=== PATIENT | female | born 1985 | race Caucasian/White ===

== ENCOUNTER 2017-06-14 18:40 | Emergency (ER) | payer MEDICAID ==
[~2017-06-14] VITALS: Ht 167.6 cm; Wt 85.5 kg
[~2017-06-14 18:40] MED LIST: NITR-58 PO; PANT40TA3 PO; TRAM-40 PO
[2017-06-14 18:51] VITALS: Ht 167.6 cm; Wt 85.5 kg
[2017-06-14] MEDS ORDERED: KETOROLAC 30 MG INJ IM STA (20:26)
[2017-06-14] MEDS ORDERED: NAPR-260 PO (20:27)
[2017-06-14] MEDS ORDERED: CYCL-319 PO (20:27)
--- NOTE | 2017-06-14 21:31 | ERD ---
ER Documentation Chief Complaint Date/Time DATE: 06/14/17 TIME: 21:29 Chief Complaint back pain x 2 days, denies injury HPI This patient is a 31-year-old female with no significant past medical history presenting to the emergency department with complaints of bilateral paraspinal lumbar pain ongoing for the past 2 days after twisting and trying to lift a heavy piece of furniture. The pain is constant, 9 out of 10 in severity, exacerbated by movement, and alleviated with ibuprofen. The patient denies any loss of bowel or bladder function, fevers, chills, or other symptoms currently. ROS All systems reviewed and are negative except as per history of present illness. Medications Home Meds Active Scripts Naproxen* (Naprosyn*) 500 Mg Tablet, 500 MG PO BID Y for PAIN AND/OR INFLAMMATION, #30 TAB Prov:LIMA RODRIGUEZ PA-C 06/14/17 Cyclobenzaprine Hcl* (Cyclobenzaprine Hcl*) 10 Mg Tablet, 10 MG PO TID, #15 TAB Prov:LIMA RODRIGUEZ PA-C 06/14/17 Tramadol Hcl* (Ultram*) 50 Mg Tablet, 50 MG PO Q6H Y for PAIN for 7 Days, TAB Prov:GIOVANNA SANTOS MD 12/17/15 Nitrofurantoin Monohyd Macrocr* (Macrobid*) 100 Mg Capsr, 100 MG PO BID for 7 Days, CAP Prov:GIOVANNA SANTOS MD 12/17/15 Pantoprazole* (Protonix*) 40 Mg Tablet.dr, 40 MG PO BID for 30 Days, TAB Prov:GIOVANNA SANTOS MD 12/17/15 Allergies Allergies: Coded Allergies: No Known Allergy (Unverified , 12/09/15) PMhx/Soc Medical and Surgical Hx: pt denies Surgical Hx History of Surgery: Yes (cholecystectomy) Anesthesia Reaction: No Hx Neurological Disorder: No Hx Respiratory Disorders: No Hx Cardiac Disorders: No Hx Psychiatric Problems: No Hx Miscellaneous Medical Probl: Yes (gastritis) Hx Alcohol Use: Yes Hx Substance Use: No Hx Tobacco Use: Yes Smoking Status: Current every day smoker Physical Exam Vitals Vital Signs Date Time Temp Pulse Resp B/P Pulse Ox O2 Delivery O2 Flow Rate FiO2 06/14/17 18:51 98.7 78 20 120/81 98 Physical Exam Const: Nontoxic, well-appearing female in no acute distress. Head: Atraumatic Eyes: Normal Conjunctiva ENT: Normal External Ears, Nose and Mouth. Neck: Full range of motion..~ No meningismus. Resp: Clear to auscultation bilaterally Cardio: Regular rate and rhythm, no murmurs Skin: No petechiae or rashes Back: No midline or flank tenderness. There is mild paraspinal tenderness palpation of the lumbar spine. Positive straight leg raise bilaterally. Ext: No cyanosis, or edema Neur: Awake and alert Psych: Normal Mood and Affect Results 24 hrs Current Medications Medications (Trade) Dose Ordered Sig/Ron Route PRN Reason Start Time Stop Time Status Last Admin Dose Admin Ketorolac Tromethamine (Toradol) 30 mg ONCE STAT IM 06/14/17 20:26 06/14/17 20:27 DC 06/14/17 20:35 Procedures/MDM 31-year-old female presenting to the emergency department with complaints of low back pain. History and physical examination is consistent with a lumbar strain. The patient was given IM Toradol in the department and she was feeling improved prior to discharge. The patient is stable for outpatient management with a prescription for naproxen and Flexeril. All questions and concerns were addressed. The patient agreed with the discharge plan of diagnosis. Strict ER return precautions were discussed. I have low suspicion for cauda equina, epidural abscess, vertebral body fracture, or other emergent conditions. Close follow-up with the primary care physician was advised. Departure Diagnosis: Primary Impression: Back pain Back pain location: low back pain Chronicity: acute Back pain laterality: bilateral Sciatica presence: unspecified whether sciatica present Qualified Code: M54.5 - Acute bilateral low back pain, with sciatica presence unspecified Condition: Fair Patient Instructions: Back Pain (Acute Or Chronic) Referrals: COMMUNITY CLINICS YOU HAVE RECEIVED A MEDICAL SCREENING EXAM AND THE RESULTS INDICATE THAT YOU DO NOT HAVE A CONDITION THAT REQUIRES URGENT TREATMENT IN THE EMERGENCY DEPARTMENT. FURTHER EVALUATION AND TREATMENT OF YOUR CONDITION CAN WAIT UNTIL YOU ARE SEEN IN YOUR DOCTORS OFFICE WITHIN THE NEXT 1-2 DAYS. IT IS YOUR RESPONSIBILITY TO MAKE AN APPOINTMENT FOR FOLOW-UP CARE. IF YOU HAVE A PRIMARY DOCTOR --you should call your primary doctor and schedule an appointment IF YOU DO NOT HAVE A PRIMARY DOCTOR YOU CAN CALL OUR PHYSICIAN REFERRAL HOTLINE AT IF YOU CAN NOT AFFORD TO SEE A PHYSICIAN YOU CAN CHOSE FROM THE FOLLOWING [facility] CLINICS [facility] [address] [facility] [address] [facility] [address] [facility] [address] [facility] [phone] [facility]. [facility]. [address] Additional Instructions: No mas mejor en 2-3 vicente, regresar. Mas peor en 24 horas, regresear rapidamente. Ir a doctor primario in 5-7 vicente. Usar instrucciones cuando kareen medicamento. LIMA RODRIGUEZ PA-C Jun 14, 2017 21:31
== END 2017-06-14 21:10 | disposition home or self-care (01) ==
LOC: FTE 18:40
DX: M54.5 Low back pain (principal); F17.210 Nicotine dependence, cigarettes, uncomplicated
CPT/HCPCS: 96372; J1885; Z7502

== ENCOUNTER 2017-11-07 04:41 | Emergency (ER) | END 2017-11-07 06:57 | disposition home or self-care (01) ==

== ENCOUNTER 2018-06-18 15:55 | Emergency (ER) | END 2018-06-18 18:52 | disposition home or self-care (01) ==

== ENCOUNTER 2018-07-02 16:24 | Emergency (ER) | END 2018-07-02 20:02 | disposition home or self-care (01) ==

== ENCOUNTER 2018-09-11 05:56 | Emergency (ER) | END 2018-09-11 07:22 | disposition home or self-care (01) ==

== ENCOUNTER 2019-03-22 08:15 | Emergency (ER) | payer MEDICAID ==
[~2019-03-22] VITALS: Ht 160 cm; Wt 76.4 kg
[~2019-03-22 08:15] MED LIST changes: +ACET1TAB40 PO; +ALBU18HF INHALATION; +CEPH500C PO; +CIPR500T4 PO; +CYCL10TA7 PO; +FLUT9.9S NASAL; +GUAI5SYR2 PO; +HYDR-4011 PO; +IBUP-1542 PO; +NAPR-688 PO; +NAPR-985 PO; +ONDA4TAB14 PO; +OSEL75CA23 PO; +PHEN-538 PO; -TRAM-40 PO; +TRAM50TA PO
[2019-03-22 08:20] VITALS: Ht 160 cm; Wt 76.4 kg
[2019-03-22] MEDS ORDERED: SOD CHLORIDE 0.9% 1,000 ML IV STA (08:36)
[2019-03-22] MEDS ORDERED: morphine 4 MG/ML VIAL IV STA (09:37)
[2019-03-22] MEDS ORDERED: ONDANSETRON 4 MG INJ IV STA (09:37)
[2019-03-22] MEDS ORDERED: KETOROLAC 30 MG INJ IV STA (09:45)
[2019-03-22] MEDS ORDERED: IOHEXOL 300MG/ML 150 ML BTL ONE (10:54)
[2019-03-22] MEDS ORDERED: SOD CHLORIDE 0.9% 100 ML ONE (10:54)
[2019-03-22] MEDS ORDERED: CEFTRIAXONE 1 GM/50 ML (PMX) 50 ML IVPB ONE (12:00)
[2019-03-22] MEDS ORDERED: CIPR500T4 PO (12:51)
[2019-03-22] MEDS ORDERED: FER325 PO (12:51)
[2019-03-22] MEDS ORDERED: DOCU-144 PO (12:51)
[2019-03-22 13:15] VITALS: BP 124/68; PULSE 66; RESP 18
--- NOTE | 2019-03-22 15:15 | ERD ---
ER Documentation Chief Complaint Chief Complaint Right flank and left LQ abd. pain for 2 weeks; no N/V/D; no urinary problem HPI 33-year-old female presenting with right flank pain for last 2 weeks. Patient states that the pain is in the lower pelvic area. No dysuria. Patient is also complaining of itchy sensation to her hands. Denies chest pain or shortness of breath. Denies medical problems. NKDA. Surgical history cholecystectomy. Social history denies ROS All systems reviewed and are negative except as per history of present illness. Medications Home Meds Active Scripts Ferrous Sulfate* (Ferrous Sulfate*) 325 Mg Tabec, 325 MG PO BID, #30 TAB Prov:KATY ERIC PA-C 03/22/19 Docusate Sodium* (Colace*) 100 Mg Capsule, 100 MG PO TID, #30 CAP Prov:KATY ERIC PA-C 03/22/19 Ciprofloxacin Hcl* (Ciprofloxacin Hcl*) 500 Mg Tablet, 500 MG PO BID for 7 Days, TAB Prov:KATY ERIC PA-C 03/22/19 Phenazopyridine Hcl* (Pyridium*) 200 Mg Tab, 200 MG PO TID PRN for URINARY PAIN, #6 TAB Prov:ENOC WHITE PA-C 09/11/18 Cephalexin* (Cephalexin*) 500 Mg Capsule, 500 MG PO BID, #20 CAP Prov:ENOC WHITE PA-C 09/11/18 Acetaminophen with Codeine (Acetaminophen-Cod #3 Tablet) 1 Each Tablet, 1 TAB PO Q6H PRN for PAIN, #7 TAB Prov:LEONCIO GARCIA MD 07/02/18 Ibuprofen* (Motrin*) 600 Mg Tab, 600 MG PO Q6, #20 TAB Prov:LEONCIO GARCIA MD 07/02/18 Ciprofloxacin Hcl* (Ciprofloxacin Hcl*) 500 Mg Tablet, 500 MG PO BID for 10 Days, TAB Prov:LEONCIO GARCIA MD 07/02/18 Ondansetron (Ondansetron Odt) 4 Mg Tab.rapdis, 4 MG PO Q6H PRN for NAUSEA AND/OR VOMITING, #10 TAB Prov:RUT BANEGAS DO 8/12/18 Hydrocodone/Acetaminophen ([place] 5-325 Tablet) 1 Each Tablet, 1 EACH PO Q6 PRN for SEVERE PAIN LEVEL 7-10, #14 TAB Prov:RUT BANEGAS DO 06/18/18 Ciprofloxacin Hcl* (Ciprofloxacin Hcl*) 500 Mg Tablet, 500 MG PO BID, #14 TAB Prov:RUT BANEGAS DO 06/18/18 Naproxen* (Naproxen*) 500 Mg Tablet, 500 MG PO BID PRN for PAIN, #20 TAB Prov:RUT BANEGAS DO 06/18/18 Oseltamivir Phosphate* (Tamiflu*) 75 Mg Capsule, 75 MG PO BID for 5 Days, CAP Prov:NUBIA CONNC 11/07/17 Albuterol Sulfate* (Ventolin HFA*) 18 Gm Hfa.aer.ad, 2 PUFF INHALATION Q6H, #1 INHALER Prov:NUBIA CONN PA-C 11/07/17 Fluticasone Propionate (Flonase Allergy Relief) 9.9 Ml [place].susp, 2 SPRAY NASAL DAILY, #1 BOTTLE TO EACH NOSTRIL Prov:NUBIA CONNC 11/07/17 Guaifenesin-Dextromethorphan* (Robitussin* DM) 100MG/10MG/5ML Syrup, 10 ML PO Q6H PRN for COUGH for 5 Days, ML Prov:NUBIA CONNC 11/07/17 Naproxen* (Naprosyn*) 500 Mg Tablet, 500 MG PO BID PRN for PAIN AND/OR INFLAMMATION, #30 TAB Prov:NUBIA CONN PA-C 11/07/17 Naproxen* (Naprosyn*) 500 Mg Tablet, 500 MG PO BID PRN for PAIN AND/OR INFLAMMATION, #30 TAB Prov:LIMA RODRIGUEZ PA-C 06/14/17 Cyclobenzaprine Hcl* (Cyclobenzaprine Hcl*) 10 Mg Tablet, 10 MG PO TID, #15 TAB Prov:LIMA RODRIGUEZ PA-C 06/14/17 Tramadol Hcl* (Ultram*) 50 Mg Tablet, 50 MG PO Q6H PRN for PAIN for 7 Days, TAB Prov:GIOVANNA SANTOS MD 12/17/15 Nitrofurantoin Monohyd Macrocr* (Macrobid*) 100 Mg Capsr, 100 MG PO BID for 7 Days, CAP Prov:GIOVANNA SANTOS MD 12/17/15 Pantoprazole* (Protonix*) 40 Mg Tablet.dr, 40 MG PO BID for 30 Days, TAB Prov:GIOVANNA SANTOS MD 12/17/15 Allergies Allergies: Coded Allergies: No Known Allergy (Unverified , 11/07/17) PMhx/Soc Medical and Surgical Hx: pt denies Medical Hx History of Surgery: Yes (GALLBLADDER) Anesthesia Reaction: No Hx Neurological Disorder: No Hx Respiratory Disorders: No Hx Cardiac Disorders: No Hx Psychiatric Problems: No Hx Miscellaneous Medical Probl: No Hx Alcohol Use: Yes (OCCASIONAL-beer weekends) Hx Substance Use: No Hx Tobacco Use: No Smoking Status: Never smoker FmHx Family History: No diabetes, No coronary disease, No other Physical Exam Vitals Vital Signs Date Temp Pulse Resp B/P (MAP) Pulse Ox O2 O2 Flow FiO2 Time Delivery Rate 03/22/19 97.9 66 18 124/68 100 Room Air 13:15 (86) 03/22/19 98.3 72 18 138/82 100 08:20 (100) Physical Exam GENERAL: The patient is well-appearing, well-nourished, in no acute distress HEENT: Atraumatic. Conjunctivae are pink. Pupils equal, round, and reactive to light. There is no scleral icterus. Tympanic membranes clear bilaterally. Oropharynx clear. CHEST: Clear to auscultation bilaterally. There are no rales, wheezes or rhonchi. HEART: Regular rate and rhythm. No murmurs, clicks, rubs or gallops. ABDOMEN: Active bowel sounds. No distention. Generalized abdominal pain with palpation. SKIN: Pale skin noted on exam. No diaphoresis Result Diagram: 03/22/19 0842 03/22/19 0842 Results 24 hrs Laboratory Tests Test 03/22/19 08:42 03/22/19 08:45 White Blood Count 10.2 10^3/ul Red Blood Count 4.38 10^6/ul Hemoglobin 9.3 g/dl Hematocrit 31.4 % Mean Corpuscular Volume 71.7 fl Mean Corpuscular Hemoglobin 21.2 pg Mean Corpuscular Hemoglobin Concent 29.6 g/dl Red Cell Distribution Width 17.3 % Platelet Count 387 10^3/UL Mean Platelet Volume 9.3 fl Immature Granulocytes % 0.300 % Neutrophils % 59.2 % Lymphocytes % 32.7 % Monocytes % 6.2 % Eosinophils % 1.3 % Basophils % 0.3 % Nucleated Red Blood Cells % 0.0 /100WBC Immature Granulocytes # 0.030 10^3/ul Neutrophils # 6.0 10^3/ul Lymphocytes # 3.3 10^3/ul Monocytes # 0.6 10^3/ul Eosinophils # 0.1 10^3/ul Basophils # 0.0 10^3/ul Nucleated Red Blood Cells # 0.0 10^3/ul Urine Color YELLOW Urine Clarity SLIGHTLY CLOUDY Urine pH 6.0 Urine Specific [place] 1.015 Urine Ketones NEGATIVE mg/dL Urine Nitrite NEGATIVE mg/dL Urine Bilirubin NEGATIVE mg/dL Urine Urobilinogen NEGATIVE mg/dL Urine Leukocyte Esterase 3+ Jon/ul Urine Microscopic RBC 7 /HPF Urine Microscopic WBC 42 /HPF Urine Squamous Epithelial Cells FEW /HPF Urine Bacteria FEW /HPF Urine Mucus MODERATE /HPF Urine Hemoglobin 3+ mg/dL Urine Glucose NEGATIVE mg/dL Urine Total Protein NEGATIVE mg/dl Sodium Level 141 mmol/L Potassium Level 3.8 mmol/L Chloride Level 103 mmol/L Carbon Dioxide Level 28 mmol/L Anion Gap 10 Blood Urea Nitrogen 8 mg/dl Creatinine 0.52 mg/dl Est Glomerular Filtrat Rate mL/min > 60 mL/min Glucose Level 104 mg/dl Calcium Level 9.4 mg/dl Total Bilirubin 0.4 mg/dl Direct Bilirubin 0.00 mg/dl Indirect Bilirubin 0.4 mg/dl Aspartate Amino Transf (AST/SGOT) 51 IU/L Alanine Aminotransferase (ALT/SGPT) 59 IU/L Alkaline Phosphatase 112 IU/L Total Protein 8.5 g/dl Albumin 4.6 g/dl Globulin 3.90 g/dl Albumin/Globulin Ratio 1.17 Lipase 50 U/L Hepatitis B Surface Antigen NEGATIVE Hepatitis B Core Total Antibody NEGATIVE Hepatitis C Antibody NEGATIVE POC Beta HCG, Qualitative NEGATIVE Current Medications Medications Dose Sig/Ron Start Time Status Last (Trade) Ordered Route PRN Stop Time Admin Dose Reason Admin Sodium 1,000 ml @ Q1H STAT 03/22/19 DC 03/22/19 Chloride 1,000 mls/hr IV 08:36 08:56 03/22/19 09:35 Morphine 4 mg ONCE STAT 03/22/19 DC Sulfate IV 09:37 (morphine) 03/22/19 09:38 Ondansetron 4 mg ONCE STAT 03/22/19 DC 03/22/19 HCl (Zofran IV 09:37 09:49 Inj) 03/22/19 09:38 Ketorolac 30 mg ONCE STAT 03/22/19 DC 03/22/19 Tromethamine IV 09:45 09:50 (Toradol) 03/22/19 09:46 IV Flush 10 ml STK-MED 03/22/19 DC 03/22/19 (NS 10 ml) ONCE .ROUTE 10:54 11:03 03/22/19 10:55 Sodium 100 ml @ ud STK-MED 03/22/19 DC 03/22/19 Chloride ONCE .ROUTE 10:54 11:03 03/22/19 10:55 Iohexol 150 ml STK-MED 03/22/19 DC 03/22/19 (Omnipaque ONCE .ROUTE 10:54 11:03 300mg/ ml) 03/22/19 10:55 Ceftriaxone 50 ml @ ONCE ONCE 03/22/19 DC 03/22/19 Sodium 100 mls/hr IVPB 12:00 12:03 03/22/19 12:29 Procedures/MDM DIAGNOSTIC IMAGING REPORT Patient: CHELITA CLEVELAND : 1985 Age: 33 Sex: F MR #: [id number] DOS: 03/22/19 0836 Ordering MD: MILADYS ERIC PA-C Location: [facility] Room/Bed: PROCEDURE: ULTRASOUND LIMITED ABDOMEN CLINICAL INDICATION: 33-year-old female with abdominal pain. TECHNIQUE: Multiple sonographic of the right upper quadrant of the abdomen were obtained. The images were reviewed on a PACS workstation. COMPARISON: CT abdomen/pelvis June 18, 2018. FINDINGS: The pancreas is partially visualized and is otherwise without abnormal echogenicity. The liver displays diffuse increased echogenicity. The liver measures 19.8 cm in length. No evidence of intrahepatic biliary ductal dilatation is seen. The portal and hepatic veins are unremarkable. The gallbladder is not visualized consistent with prior cholecystectomy. No pericholecystic fluid is seen. The common bile duct measures 3.5 mm and is not dilated. The right kidney displays normal echogenicity. The right kidney measures 12.9 cm. No caliectasis or hydronephrosis is seen. No free fluid is seen. IMPRESSION: 1. Hepatic steatosis. 2. Status post cholecystectomy. DIAGNOSTIC IMAGING REPORT Patient: CHELITA CLEVELAND : 1985 Age: 33 Sex: F MR #: [id number] DOS: 03/22/19 0836 Ordering MD: MILADYS ERIC PA-C Location: [facility] Room/Bed: PROCEDURE: CT Abdomen and pelvis with contrast. CLINICAL INDICATION: Right flank pain TECHNIQUE: CT scan of the abdomen and pelvis with contrast was performed on a multidetector high-resolution CT scan. The patient was scanned following the uncomplicated intravenous administration of 100 cc Omnipaque 300. Coronal and sagittal reformatted images were obtained from the axial source images. Standard CT of the abdomen pelvis with contrast protocols were performed. The total exam CTDI equals 14.3 mGy and the total exam DLP equals 834.62 mGy-cm. One or more of the following dose reduction techniques were used: - Automated exposure control. - Adjustment of the mA and/or kV according to patient size. Use of iterative reconstruction technique. Dicom images are available COMPARISON: CT abdomen pelvis 06/18/2018 FINDINGS: The kidneys are normal in size without calcified calculi hydronephrosis or intra renal masses bilaterally. No evidence of ureteral calcified calculi or dilatation. Urinary bladder unremarkable. Anteverted anteflexed otherwise unremarkable uterus. Prominent bilateral ovaries with follicular cysts. Note however that there are low densities within the left ovary that may represent additional left ovarian cyst measuring approximately 2.8 cm. Follow-up pelvic ultrasound may be helpful. Stomach, small bowel, large bowel and appendix are unremarkable. Status post prior cholecystectomy. No evidence biliary ductal dilation. Hepatomegaly with diffuse hepatic fatty infiltration but no focal hepatic lesions. Spleen pancreas adrenal glands are unremarkable. No evidence of intra-abdominal free air, free fluid, abscesses or lymphadenopathy. Again noted is a right supra umbilical fat-containing hernia without herniated bowel or strangulation unchanged. Lung bases unremarkable. Aorta unremarkable. Mild dextrorotoscoliosis of the lower thoracic lumbar spine in the left L1 vertebral body is a 1.4 cm hemangioma. IMPRESSION: 1. No change in the right ventral abdominal wall supraumbilical fat-containing hernia without herniated bowel or strangulation. 2. No calcified urinary calculi or obstructive uropathy. 3. No gastrointestinal disease. 4. Status post prior cholecystectomy. No biliary ductal dilation. 5. Prominent ovaries with likely all due to follicular cyst. However in the left adnexa is a 2.8 cm more prominent low density likely a left ovarian cyst. Follow-up pelvic ultrasound is suggested. 6. Hepatomegaly with hepatic fatty infiltration. ER Course: 1 L normal saline given ED. IV Rocephin given. Hepatitis panel negative. MDM: 33-year-old female presenting with abdominal pain. Patient's findings are consistent with urinary tract infection. I have low suspicion for pyelonephritis. Patient had some mild jaundice findings on exam which are likely not jaundice and pallor secondary to anemia. Patient does not require transfusion at this time. She is not having vaginal bleeding. Patient will be discharged with supportive medications. She is not symptomatic. Patient is discharged with oral antibiotics. Patient is discharged with strict ER precautions. All questions answered at discharge Departure Diagnosis: Primary Impression: UTI (urinary tract infection) Additional Impression: Anemia Condition: Stable Patient Instructions: Anemia, Understanding Urinary Tract Infections (UTIs) Referrals: COMMUNITY CLINICS YOU HAVE RECEIVED A MEDICAL SCREENING EXAM AND THE RESULTS INDICATE THAT YOU DO NOT HAVE A CONDITION THAT REQUIRES URGENT TREATMENT IN THE EMERGENCY DEPARTMENT. FURTHER EVALUATION AND TREATMENT OF YOUR CONDITION CAN WAIT UNTIL YOU ARE SEEN IN YOUR DOCTORS OFFICE WITHIN THE NEXT 1-2 DAYS. IT IS YOUR RESPONSIBILITY TO MAKE AN APPOINTMENT FOR FOLOW-UP CARE. IF YOU HAVE A PRIMARY DOCTOR --you should call your primary doctor and schedule an appointment IF YOU DO NOT HAVE A PRIMARY DOCTOR YOU CAN CALL OUR PHYSICIAN REFERRAL HOTLINE AT IF YOU CAN NOT AFFORD TO SEE A PHYSICIAN YOU CAN CHOSE FROM THE FOLLOWING COUNTS INCLUDE 234 BEDS AT THE [facility] CLINICS [facility] [address] [facility] [address] [facility] [address] [facility] [address] [facility] [address] [facility]. [facility]. [address] Additional Instructions: FOLLOW UP WITH YOUR PRIMARY CARE PHYSICIAN TOMORROW.Return to this facility if you are not improving as expected. KATY ERIC PA-C March 22, 2019 15:15
== END 2019-03-22 13:16 | disposition home or self-care (01) ==
LOC: FTE 08:15
DX: N39.0 Urinary tract infection, site not specified (principal); D64.9 Anemia, unspecified
CPT/HCPCS: 36415; 74177; 76705; 80053; 81001; 81025; 83690; 83789; 85025; 86704; 86709; 86803; 87340; 96361; 96365; 96375; J0696; J1885; J2270; J2405; J7030; Q9967; Z7502; Z7610

== ENCOUNTER 2019-05-17 04:48 | Emergency (ER) | payer MEDICAID ==
[~2019-05-17] VITALS: Ht 170.2 cm; Wt 75.9 kg
[~2019-05-17 04:48] MED LIST changes: +DOCU-144 PO; +FER325 PO
[2019-05-17 05:00] VITALS: Ht 170.2 cm; Wt 75.9 kg
[2019-05-17] MEDS ORDERED: KETOROLAC 15 MG INJ IV STA (05:21)
[2019-05-17] MEDS ORDERED: SOD CHLORIDE 0.9% 1,000 ML IV STA (05:21)
[2019-05-17] MEDS ORDERED: ONDANSETRON 4 MG INJ IV STA (05:21)
[2019-05-17] MEDS ORDERED: FAMO-96 PO (07:01)
[2019-05-17] MEDS ORDERED: CIPR500T4 PO (07:01)
[2019-05-17] MEDS ORDERED: HYDR-4011 PO (07:01)
[2019-05-17] MEDS ORDERED: ONDA4TAB14 PO (07:04)
[2019-05-17] MEDS ORDERED: DOCU-144 PO (07:04)
[2019-05-17 07:09] VITALS: BP 128/56; PULSE 72; RESP 16
--- NOTE | 2019-05-17 07:31 | ERD ---
ER Documentation Chief Complaint Chief Complaint ABDOMINAL PAIN STARTED 2 DYAS AGO, 08/16 PAIN, NAUSEA,VOMITING. HPI 33-year-old female presenting with abdominal pain x2 days. She states she has nausea and the pain comes and goes. She describes a 10 out of 10 pain. She has not taken medicine today for the pain. Has had no changes in urination or bowel movement. Last bowel movement was yesterday. States the pain is in the ep igastric region as well as the right lower quadrant and also the flank. No CVA tenderness or back pain. Chest pain or shortness of breath. Denies medical problems. NKDA. Surgical history denies. Social history denies ROS All systems reviewed and are negative except as per history of present illness. Medications Home Meds Active Scripts Ondansetron (Ondansetron Odt) 4 Mg Tab.rapdis, 4 MG PO Q6H PRN for NAUSEA AND/OR VOMITING, #10 TAB Prov:KATY ERIC PA-C 05/17/19 Docusate Sodium* (Colace*) 100 Mg Capsule, 100 MG PO TID, #30 CAP Prov:KATY ERIC PA-C 05/17/19 Famotidine* (Pepcid*) 20 Mg Tablet, 20 MG PO BID for 4 Days, #30 TAB Prov:KATY ERIC PA-C 05/17/19 Hydrocodone/Acetaminophen ([place] 5-325 Tablet) 1 Each Tablet, 1 TAB PO Q6H PRN for PAIN, #7 TAB Prov:KATY ERIC PA-C 05/17/19 Ciprofloxacin Hcl* (Ciprofloxacin Hcl*) 500 Mg Tablet, 500 MG PO BID for 7 Days, TAB Prov:KATY ERIC PA-C 05/17/19 Ferrous Sulfate* (Ferrous Sulfate*) 325 Mg Tabec, 325 MG PO BID, #30 TAB Prov:KATY ERIC PA-C 03/22/19 Docusate Sodium* (Colace*) 100 Mg Capsule, 100 MG PO TID, #30 CAP Prov:KATY ERIC PA-C 03/22/19 Ciprofloxacin Hcl* (Ciprofloxacin Hcl*) 500 Mg Tablet, 500 MG PO BID for 7 Days, TAB Prov:KATY ERIC PA-C 03/22/19 Phenazopyridine Hcl* (Pyridium*) 200 Mg Tab, 200 MG PO TID PRN for URINARY PAIN, #6 TAB Prov:ENOC WHITE PA-C 09/11/18 Cephalexin* (Cephalexin*) 500 Mg Capsule, 500 MG PO BID, #20 CAP Prov:ENOC WHITE PA-C 09/11/18 Acetaminophen with Codeine (Acetaminophen-Cod #3 Tablet) 1 Each Tablet, 1 TAB PO Q6H PRN for PAIN, #7 TAB Prov:LEONCIO GARCIA MD 07/02/18 Ibuprofen* (Motrin*) 600 Mg Tab, 600 MG PO Q6, #20 TAB Prov:LEONCIO GARCIA MD 07/02/18 Ciprofloxacin Hcl* (Ciprofloxacin Hcl*) 500 Mg Tablet, 500 MG PO BID for 10 Days, TAB Prov:LEONCIO GARCIA MD 07/02/18 Ondansetron (Ondansetron Odt) 4 Mg Tab.rapdis, 4 MG PO Q6H PRN for NAUSEA AND/OR VOMITING, #10 TAB Prov:RUT BANEGAS DO 06/18/18 Hydrocodone/Acetaminophen ([place] 5-325 Tablet) 1 Each Tablet, 1 EACH PO Q6 PRN for SEVERE PAIN LEVEL 7-10, #14 TAB Prov:RUT BANEGAS DO 06/18/18 Ciprofloxacin Hcl* (Ciprofloxacin Hcl*) 500 Mg Tablet, 500 MG PO BID, #14 TAB Prov:RUT BANEGAS DO 06/18/18 Naproxen* (Naproxen*) 500 Mg Tablet, 500 MG PO BID PRN for PAIN, #20 TAB Prov:RUT BANEGAS DO 06/18/18 Oseltamivir Phosphate* (Tamiflu*) 75 Mg Capsule, 75 MG PO BID for 5 Days, CAP Prov:NUBIA CONN PA-C 11/07/17 Albuterol Sulfate* (Ventolin HFA*) 18 Gm Hfa.aer.ad, 2 PUFF INHALATION Q6H, #1 INHALER Prov:NUBIA CONN PA-C 11/07/17 Fluticasone Propionate (Flonase Allergy Relief) 9.9 Ml [place].susp, 2 SPRAY NASAL DAILY, #1 BOTTLE TO EACH NOSTRIL Prov:NUBIA CONNC 11/07/17 Guaifenesin-Dextromethorphan* (Robitussin* DM) 100MG/10MG/5ML Syrup, 10 ML PO Q6H PRN for COUGH for 5 Days, ML Prov:NUBIA CONNC 11/07/17 Naproxen* (Naprosyn*) 500 Mg Tablet, 500 MG PO BID PRN for PAIN AND/OR INFLAMMATION, #30 TAB Prov:NUBIA CONNC 11/07/17 Naproxen* (Naprosyn*) 500 Mg Tablet, 500 MG PO BID PRN for PAIN AND/OR INFLAMMATION, #30 TAB Prov:LIMA RODRIGUEZ PA-C 06/14/17 Cyclobenzaprine Hcl* (Cyclobenzaprine Hcl*) 10 Mg Tablet, 10 MG PO TID, #15 TAB Prov:LIMA RODRIGUEZ PA-C 06/14/17 Tramadol Hcl* (Ultram*) 50 Mg Tablet, 50 MG PO Q6H PRN for PAIN for 7 Days, TAB Prov:GIOVANNA SANTOS MD 12/17/15 Nitrofurantoin Monohyd Macrocr* (Macrobid*) 100 Mg Capsr, 100 MG PO BID for 7 Days, CAP Prov:GIOVANNA SANTOS MD 12/17/15 Pantoprazole* (Protonix*) 40 Mg Tablet.dr, 40 MG PO BID for 30 Days, TAB Prov:GIOVANNA SANTOS MD 12/17/15 Allergies Allergies: Coded Allergies: No Known Allergy (Unverified , 05/17/19) PMhx/Soc Medical and Surgical Hx: pt denies Medical Hx History of Surgery: Yes (Cholecystectomy 2016) Anesthesia Reaction: No Hx Neurological Disorder: No Hx Respiratory Disorders: No Hx Cardiac Disorders: No Hx Psychiatric Problems: No Hx Miscellaneous Medical Probl: No Hx Alcohol Use: Yes (OCCASIONAL-beer weekends) Hx Substance Use: No Hx Tobacco Use: No Smoking Status: Never smoker FmHx Family History: No diabetes, No coronary disease, No other Physical Exam Vitals Vital Signs Date Temp Pulse Resp B/P (MAP) Pulse Ox O2 O2 Flow FiO2 Time Delivery Rate 7/11/19 98.1 72 16 128/56 100 Room Air 07:09 (80) 05/17/19 98.5 72 16 133/62 100 05:00 (85) Physical Exam GENERAL: The patient is well-appearing, well-nourished, in no acute distress CHEST: Clear to auscultation bilaterally. There are no rales, wheezes or rhonchi. HEART: Regular rate and rhythm. No murmurs, clicks, rubs or gallops. ABDOMEN:Soft, nontender and nondistended. Good bowel sounds. No rebound or guarding. No gross peritonitis. No gross organomegaly or masses. BACK: No midline or flank tenderness. Possible CVA tenderness Result Diagram: 05/17/1953705/17/19537 Results 24 hrs Laboratory Tests Test 05/17/19 05:38 05/17/19 05:46 White Blood Count 10.4 10^3/ul Red Blood Count 4.30 10^6/ul Hemoglobin 9.6 g/dl Hematocrit 32.5 % Mean Corpuscular Volume 75.6 fl Mean Corpuscular Hemoglobin 22.3 pg Mean Corpuscular Hemoglobin Concent 29.5 g/dl Red Cell Distribution Width 18.7 % Platelet Count 381 10^3/UL Mean Platelet Volume 9.5 fl Immature Granulocytes % 0.300 % Neutrophils % 63.9 % Lymphocytes % 27.7 % Monocytes % 7.0 % Eosinophils % 0.8 % Basophils % 0.3 % Nucleated Red Blood Cells % 0.0 /100WBC Immature Granulocytes # 0.030 10^3/ul Neutrophils # 6.6 10^3/ul Lymphocytes # 2.9 10^3/ul Monocytes # 0.7 10^3/ul Eosinophils # 0.1 10^3/ul Basophils # 0.0 10^3/ul Nucleated Red Blood Cells # 0.0 10^3/ul Prothrombin Time 13.3 Sec Prothrombin Time Ratio 1.0 INR International Normalized Ratio 1.00 Activated Partial Thromboplast Time 31.5 Sec Urine Color YELLOW Urine Clarity SLIGHTLY CLOUDY Urine pH 6.0 Urine Specific Robinson 1.014 Urine Ketones NEGATIVE mg/dL Urine Nitrite NEGATIVE mg/dL Urine Bilirubin NEGATIVE mg/dL Urine Urobilinogen NEGATIVE mg/dL Urine Leukocyte Esterase 3+ Jon/ul Urine Microscopic RBC 5 /HPF Urine Microscopic WBC 20 /HPF Urine Squamous Epithelial Cells FEW /HPF Urine Bacteria FEW /HPF Urine Hemoglobin 2+ mg/dL Urine Glucose NEGATIVE mg/dL Urine Total Protein NEGATIVE mg/dl Sodium Level 144 mmol/L Potassium Level 3.8 mmol/L Chloride Level 105 mmol/L Carbon Dioxide Level 28 mmol/L Anion Gap 11 Blood Urea Nitrogen 9 mg/dl Creatinine 0.57 mg/dl Est Glomerular Filtrat Rate mL/min > 60 mL/min Glucose Level 109 mg/dl Calcium Level 9.7 mg/dl Total Bilirubin 0.3 mg/dl Direct Bilirubin 0.00 mg/dl Indirect Bilirubin 0.3 mg/dl Aspartate Amino Transf (AST/SGOT) 33 IU/L Alanine Aminotransferase (ALT/SGPT) 41 IU/L Alkaline Phosphatase 96 IU/L Total Protein 8.1 g/dl Albumin 4.6 g/dl Globulin 3.50 g/dl Albumin/Globulin Ratio 1.31 Lipase 41 U/L POC Beta HCG, Qualitative NEGATIVE Bedside Urine pH (LAB) 6.0 Bedside Urine Protein (LAB) 1+ Bedside Urine Glucose (UA) Negative Bedside Urine Ketones (LAB) Negative Bedside Urine Blood 1+ Bedside Urine Nitrite (LAB) Negative Bedside Urine Leukocyte Esterase (L 1+ Current Medications Medications Dose Sig/Ron Start Time Status Last (Trade) Ordered Route PRN Stop Time Admin Dose Reason Admin Sodium 1,000 ml @ Q1H STAT 05/17/19 DC 05/17/19 Chloride 1,000 mls/hr IV 05:21 05:43 05/17/19 06:20 Ondansetron 4 mg ONCE STAT 05/17/19 DC 05/17/19 HCl (Zofran IV 05:21 05:43 Inj) 05/17/19 05:22 Ketorolac 15 mg ONCE STAT 05/17/19 DC 05/17/19 Tromethamine IV 05:21 05:43 (Toradol) 05/17/19 05:22 Procedures/MDM DIAGNOSTIC IMAGING REPORT Patient: CHELITA CLEVELAND : 1985 Age: 33 Sex: F [id number] DOS: 05/17/19 0521 Ordering MD: LIMA RODRIGUEZ PA-C Location: [facility]TE Room/Bed: PROCEDURE: CT ABDOMEN/PELVIS WITHOUT CONTRAST CLINICAL INDICATION: 33-year-old female with abdominal pain. TECHNIQUE: The study was performed utilizing a [employer] VCT 64-slice CT scanner. Direct axial sections were obtained through the abdomen and pelvis without the use of intravenous contrast material. Sagittal and coronal reformations were obtained. One or more of the following dose reduction techniques were utilized: automated exposure control, adjustment of the mA and/or kV according to patient's size, use of iterative reconstruction techniq ue. DICOM images are available. The images were reviewed on a PACS workstation. CTD/vol = 12.39 mGy; Total Exam DLP = 774.64 mGy.cm. COMPARISON: CT abdomen/pelvis March 22, 2019. FINDINGS: The lung bases are unremarkable. There is no evidence for significant pleural effusion. The liver has a normal contour and appears to be enlarged with a maximal length of approximately 28.0 cm. There is diffuse decreased density throughout the liver consistent with fatty infiltration but without focal areas of abnormal density. No intrahepatic nor extrahepatic biliary ductal dilatation is seen. Surgical clips are seen within the gallbladder fossa from prior cholecystectomy. There is a small right upper quadrant ventral incisional hernia again noted with an opening of 8 x 9 mm containing fat. The pancreas is without areas of abnormal attenuation. The spleen is identified and has a normal size without abnormal density. The adrenal glands are unremarkable. The kidneys are without abnormal density. No hydroureteronephrosis nor nephroureterolithiasis is evident. The urinary bladder contains a small volume of urine with a punctate calcification within the anterior wall again noted.. There is mild retained stool in the ascending and transverse colon without evidence for bowel obstruction. The appendix is visualized and is without abnormal thickening or surrounding inflammatory reaction. The uterus has a lobular appearance is anteflexed. The left ovary is again noted to be enlarged and appears to contains multiple cysts. The largest cyst measures approximately 2.1 x 2.6 x 2.6 cm. There is no significant free fluid. The aortoiliac vessels are without aneurysmal dilatation. The osseous structures are intact. IMPRESSION: 1. Hepatomegaly with steatosis. 2. Status post cholecystectomy. 3. Small right upper quadrant ventral incisional hernia containing fat without interval change. 4. Mild retained stool within the proximal colon without obstruction. 5. No CT evidence for appendicitis. 6. Enlarged left ovary with multiple cysts previously identified. ER course: 1L NS, toradol given in ED MDM: 33-year-old female presenting with abdominal pain. Patient's blood work was within normal limits and CT scan is not concerning for appendicitis or bowel obstruction. Patient's pain was controlled on reevaluation. I will suspicion for cardiac or pulmonary emergency. Patient is discharged with supportive medications and told to follow-up with primary care. I will suspicion for AAA or aortic dissection. I have low suspicion for choledocholithiasis, cholecystitis or cholangitis. Patient is status post cholecystectomy but I have low suspicion for other retained stones or right upper quadrant complications. Patient is discharged with strict ER precautions and told to follow-up with primary care within 1 to 2 days for close evaluation. Patient is told if s ymptoms change or worsen to return immediately to the ER. All questions answered at discharge Departure Diagnosis: Primary Impression: UTI (urinary tract infection) Additional Impression: Epigastric pain Condition: Stable Patient Instructions: Understanding Urinary Tract Infections (UTIs), Epigastric Pain (Uncertain Cause) Referrals: [facility] YOU HAVE RECEIVED A MEDICAL SCREENING EXAM AND THE RESULTS INDICATE THAT YOU DO NOT HAVE A CONDITION THAT REQUIRES URGENT TREATMENT IN THE EMERGENCY DEPARTMENT. FURTHER EVALUATION AND TREATMENT OF YOUR CONDITION CAN WAIT UNTIL YOU ARE SEEN IN YOUR DOCTORS OFFICE WITHIN THE NEXT 1-2 DAYS. IT IS YOUR RESPONSIBILITY TO MAKE AN APPOINTMENT FOR FOLOW-UP CARE. IF YOU HAVE A PRIMARY DOCTOR --you should call your primary doctor and schedule an appointment IF YOU DO NOT HAVE A PRIMARY DOCTOR YOU CAN CALL OUR PHYSICIAN REFERRAL HOTLINE AT IF YOU CAN NOT AFFORD TO SEE A PHYSICIAN YOU CAN CHOSE FROM THE FOLLOWING [facility] [address] [facility] [facility] [address] [facility] [facility] [address] [facility] [facility] [address] [facility]. [facility] [address] [facility]. [facility]. [address] Additional Instructions: FOLLOW UP WITH YOUR PRIMARY CARE PHYSICIAN TOMORROW.Return to this facility if you are not improving as expected. KATY ERIC PA-C May 17, 2019 07:31
[2019-05-18] MEDS ORDERED: FER325 PO (22:19)
== END 2019-05-17 07:09 | disposition home or self-care (01) ==
LOC: FTE 04:48
DX: N39.0 Urinary tract infection, site not specified (principal)
CPT/HCPCS: 36415; 74176; 80053; 81001; 81003; 81025; 83690; 85025; 85610; 85730; 87086; 96361; 96374; 96375; J1885; J2405; J7030; Z7502

== ENCOUNTER 2019-05-18 16:19 | Emergency (ER) | payer MEDICAID ==
[~2019-05-18] VITALS: Ht 162.6 cm; Wt 80.0 kg
[~2019-05-18 16:19] MED LIST changes: +FAMO-96 PO
[2019-05-18 16:37] VITALS: Ht 162.6 cm; Wt 80.0 kg
[2019-05-18] MEDS ORDERED: ONDANSETRON 4 MG INJ IV STA ×2 (17:57→20:09)
[2019-05-18] MEDS ORDERED: FAMOTIDINE 20 MG INJ IV STA (17:57)
[2019-05-18] MEDS ORDERED: SOD CHLORIDE 0.9% 1,000 ML IV STA ×2 (17:57)
[2019-05-18] MEDS ORDERED: LIDOCAINE/MYLANTA 40 ML BTL PO STA (17:57)
[2019-05-18] MEDS ORDERED: ONDANSETRON 4 MG INJ ONE ×2 (18:16→20:13)
[2019-05-18] MEDS ORDERED: LIDOCAINE/MYLANTA 40 ML BTL ONE (18:16)
[2019-05-18] MEDS ORDERED: FAMOTIDINE 20 MG INJ ONE (18:16)
--- NOTE | 2019-05-18 18:37 | ERD ---
ER Documentation Chief Complaint Chief Complaint pt is bib family with c/o abd pain starting Tuesday HPI This is a 33-year-old female with history of cholecystectomy presents to the ED for complaints of mid epigastric pain x2 days. Pain is described as heavy, 9/10 in intensity, nonradiating. She was seen here yesterday with same complaints with normal CT abdomen. She was discharged home with Pepcid, Zofran, [place] and Colace. She states she felt a little bit better but started to have the same symptoms this morning after eating soup. Pain was not resolved with the medication so she came here. Pain has been constant and progressively worsening since the morning. She feels nauseous, no vomiting. No fevers, chest pain or shortness of breath. She does report a diet of spicy and citrus. ROS All systems reviewed and are negative except as per history of present illness. Medications Home Meds Active Scripts Ferrous Sulfate* (Ferrous Sulfate*) 325 Mg Tabec, 325 MG PO DAILY for 90 Days, #90 TAB Prov:MONI SPENCE PA-C 05/18/19 Ondansetron (Ondansetron Odt) 4 Mg Tab.rapdis, 4 MG PO Q6H PRN for NAUSEA AND/OR VOMITING, #10 TAB Prov:KATY ERIC PA-C 05/17/19 Docusate Sodium* (Colace*) 100 Mg Capsule, 100 MG PO TID, #30 CAP Prov:KATY ERIC PA-C 05/17/19 Famotidine* (Pepcid*) 20 Mg Tablet, 20 MG PO BID for 4 Days, #30 TAB Prov:KATY ERIC PA-C 05/17/19 Hydrocodone/Acetaminophen ([place] 5-325 Tablet) 1 Each Tablet, 1 TAB PO Q6H PRN for PAIN, #7 TAB Prov:KATY ERIC PA-C 05/17/19 Ciprofloxacin Hcl* (Ciprofloxacin Hcl*) 500 Mg Tablet, 500 MG PO BID for 7 Days, TAB Prov:KATY ERIC PA-C 05/17/19 Ferrous Sulfate* (Ferrous Sulfate*) 325 Mg Tabec, 325 MG PO BID, #30 TAB Prov:KATY ERIC PA-C 03/22/19 Docusate Sodium* (Colace*) 100 Mg Capsule, 100 MG PO TID, #30 CAP Prov:KATY ERIC PA-C 03/22/19 Ciprofloxacin Hcl* (Ciprofloxacin Hcl*) 500 Mg Tablet, 500 MG PO BID for 7 Days, TAB Prov:KATY ERIC PA-C 03/22/19 Phenazopyridine Hcl* (Pyridium*) 200 Mg Tab, 200 MG PO TID PRN for URINARY PAIN, #6 TAB Prov:ENOC WHITE PA-C 09/11/18 Cephalexin* (Cephalexin*) 500 Mg Capsule, 500 MG PO BID, #20 CAP Prov:ENOC WHITE PA-C 09/11/18 Acetaminophen with Codeine (Acetaminophen-Cod #3 Tablet) 1 Each Tablet, 1 TAB PO Q6H PRN for PAIN, #7 TAB Prov:LEONCIO GARCIA MD 07/02/18 Ibuprofen* (Motrin*) 600 Mg Tab, 600 MG PO Q6, #20 TAB Prov:LEONCIO GARCIA MD 07/02/18 Ciprofloxacin Hcl* (Ciprofloxacin Hcl*) 500 Mg Tablet, 500 MG PO BID for 10 Days, TAB Prov:LEONCIO GARCIA MD 07/02/18 Ondansetron (Ondansetron Odt) 4 Mg Tab.rapdis, 4 MG PO Q6H PRN for NAUSEA AND/OR VOMITING, #10 TAB Prov:RUT BANEGAS DO 06/18/18 Hydrocodone/Acetaminophen ([place] 5-325 Tablet) 1 Each Tablet, 1 EACH PO Q6 PRN for SEVERE PAIN LEVEL 7-10, #14 TAB Prov:RUT BANEGAS DO 06/18/18 Ciprofloxacin Hcl* (Ciprofloxacin Hcl*) 500 Mg Tablet, 500 MG PO BID, #14 TAB Prov:RUT BANEGAS DO 06/18/18 Naproxen* (Naproxen*) 500 Mg Tablet, 500 MG PO BID PRN for PAIN, #20 TAB Prov:RUT BANEGAS DO 06/18/18 Oseltamivir Phosphate* (Tamiflu*) 75 Mg Capsule, 75 MG PO BID for 5 Days, CAP Prov:NUBIA CONN PA-C 11/07/17 Albuterol Sulfate* (Ventolin HFA*) 18 Gm Hfa.aer.ad, 2 PUFF INHALATION Q6H, #1 INHALER Prov:NUBIA CONN PA-C 11/07/17 Fluticasone Propionate (Flonase Allergy Relief) 9.9 Ml [place].susp, 2 SPRAY NASAL DAILY, #1 BOTTLE TO EACH NOSTRIL Prov:NUBIA CONN PA-C 11/07/17 Guaifenesin-Dextromethorphan* (Robitussin* DM) 100MG/10MG/5ML Syrup, 10 ML PO Q6H PRN for COUGH for 5 Days, ML Prov:NUBIA CONN PA-C 11/07/17 Naproxen* (Naprosyn*) 500 Mg Tablet, 500 MG PO BID PRN for PAIN AND/OR I NFLAMMATION, #30 TAB Prov:NUBIA CONN PA-C 11/07/17 Naproxen* (Naprosyn*) 500 Mg Tablet, 500 MG PO BID PRN for PAIN AND/OR INFLAMMATION, #30 TAB Prov:LIMA RODRIGUEZ PA-C 06/14/17 Cyclobenzaprine Hcl* (Cyclobenzaprine Hcl*) 10 Mg Tablet, 10 MG PO TID, #15 TAB Prov:LIMA RODRIGUEZ PA-C 06/14/17 Tramadol Hcl* (Ultram*) 50 Mg Tablet, 50 MG PO Q6H PRN for PAIN for 7 Days, TAB Prov:GIOVANNA SANTOS MD 12/17/15 Nitrofurantoin Monohyd Macrocr* (Macrobid*) 100 Mg Capsr, 100 MG PO BID for 7 Days, CAP Prov:GIOVANNA SANTOS MD 12/17/15 Pantoprazole* (Protonix*) 40 Mg Tablet.dr, 40 MG PO BID for 30 Days, TAB Prov:GIOVANNA SANTOS MD 12/17/15 Allergies Allergies: Coded Allergies: No Known Allergy (Unverified , 05/17/19) PMhx/Soc History of Surgery: Yes (Cholecystectomy 2016) Anesthesia Reaction: No Hx Neurological Disorder: No Hx Respiratory Disorders: No Hx Cardiac Disorders: No Hx Psychiatric Problems: No Hx Miscellaneous Medical Probl: No Hx Alcohol Use: Yes (OCCASIONAL-beer weekends) Hx Substance Use: No Hx Tobacco Use: No Smoking Status: Never smoker FmHx Family History: No diabetes Physical Exam Vitals Vital Signs Date Temp Pulse Resp B/P (MAP) Pulse Ox O2 O2 Flow FiO2 Time Delivery Rate 05/18/19 98.4 64 18 132/76 100 16:37 (94) Physical Exam Const: + Mild distress secondary to pain. Head: Atraumatic Eyes: Normal Conjunctiva ENT: Normal External Ears, Nose and Mouth. Neck: Full range of motion. No meningismus. Resp: Clear to auscultation bilaterally Cardio: Regular rate and rhythm, no murmurs Abd: Soft, + moderate midepigastric tenderness palpation, no rebound, no guarding. Negative McBurney's., non distended. Normal bowel sounds Skin: No petechiae or rashes Back: No midline or flank tenderness Ext: No cyanosis, or edema Neur: Awake and alert Psych: Normal Mood and Affect Result Diagram: 05/18/19210305/18/192103 Results 24 hrs Laboratory Tests Test 05/18/19 18:19 05/18/19 21:04 POC Beta HCG, Qualitative NEGATIVE White Blood Count 6.7 10^3/ul Red Blood Count 4.01 10^6/ul Hemoglobin 9.0 g/dl Hematocrit 30.6 % Mean Corpuscular Volume 76.3 fl Mean Corpuscular Hemoglobin 22.4 pg Mean Corpuscular Hemoglobin Concent 29.4 g/dl Red Cell Distribution Width 18.7 % Platelet Count 241 10^3/UL Mean Platelet Volume 9.6 fl Immature Granulocytes % 0.400 % Neutrophils % 58.6 % Lymphocytes % 33.1 % Monocytes % 6.9 % Eosinophils % 0.9 % Basophils % 0.1 % Nucleated Red Blood Cells % 0.0 /100WBC Immature Granulocytes # 0.030 10^3/ul Neutrophils # 3.9 10^3/ul Lymphocytes # 2.2 10^3/ul Monocytes # 0.5 10^3/ul Eosinophils # 0.1 10^3/ul Basophils # 0.0 10^3/ul Nucleated Red Blood Cells # 0.0 10^3/ul Sodium Level 143 mmol/L Potassium Level 3.3 mmol/L Chloride Level 106 mmol/L Carbon Dioxide Level 28 mmol/L Anion Gap 9 Blood Urea Nitrogen 6 mg/dl Creatinine 0.55 mg/dl Est Glomerular Filtrat Rate mL/min > 60 mL/min Glucose Level 101 mg/dl Calcium Level 8.5 mg/dl Total Bilirubin 0.3 mg/dl Direct Bilirubin 0.00 mg/dl Indirect Bilirubin 0.3 mg/dl Aspartate Amino Transf (AST/SGOT) 183 IU/L Alanine Aminotransferase (ALT/SGPT) 162 IU/L Alkaline Phosphatase 124 IU/L Troponin I < 0.012 ng/ml Total Protein 7.6 g/dl Albumin 4.1 g/dl Globulin 3.50 g/dl Albumin/Globulin Ratio 1.17 Lipase 45 U/L Current Medications Medications Dose Sig/Ron Start Time Status Last (Trade) Ordered Route PRN Stop Time Admin Dose Reason Admin Sodium 1,000 ml @ Q1H STAT 05/18/19 DC 05/18/19 Chloride 1,000 mls/hr IV 17:57 18:17 05/18/19 18:56 Sodium 1,000 ml @ Q1H STAT 05/18/19 DC 05/18/19 Chloride 1,000 mls/hr IV 17:57 18:17 05/18/19 18:56 Ondansetron 4 mg ONCE STAT 05/18/19 DC 05/18/19 HCl (Zofran IV 17:57 18:17 Inj) 05/18/19 17:59 Famotidine 20 mg ONCE STAT 05/18/19 DC 05/18/19 (Pepcid Iv) IV 17:57 18:17 05/18/19 17:59 40 ml ONCE STAT 05/18/19 DC 05/18/19 Miscellaneous PO 17:57 18:17 Medication 05/18/19 17:59 (Gi Cocktail (2)) Sucralfate 1 gm ONCE ONCE 05/18/19 DC 05/18/19 (Carafate) PO 19:00 19:56 05/18/19 19:01 Ondansetron 4 mg ONCE STAT 05/18/19 DC 05/18/19 HCl (Zofran IV 20:09 20:14 Inj) 05/18/19 20:10 Morphine 4 mg ONCE STAT 05/18/19 DC 05/18/19 Sulfate IV 20:09 20:14 (morphine) 05/18/19 20:10 Procedures/MDM EMERGENT LABS: CBC: + mild anemia w/ H&H of 9 & 30.6 CMP: + transaminitis w/ AST and ALT of 183 and 162 The patient's lipase is normal and indicative of no pancreatitis. Chg: neg EMERGENT IMAGING: PROCEDURE: CT ABDOMEN/PELVIS WITHOUT CONTRAST CLINICAL INDICATION: 33-year-old female with abdominal pain. COMPARISON: CT abdomen/pelvis March 22, 2019. IMPRESSION: 1. Hepatomegaly with steatosis. 2. Status post cholecystectomy. 3. Small right upper quadrant ventral incisional hernia containing fat without interval change. 4. Mild retained stool within the proximal colon without obstruction. 5. No CT evidence for appendicitis. 6. Enlarged left ovary with multiple cysts previously identified. ED COURSE: The patient was given IV fluids, Pepcid, GI cocktail, morphine, Zofran The medication was well tolerated and the patient had market improvement in symptoms. The patient remained stable throughout ED course. MEDICAL DECISION MAKING: This is a 33-year-old female presents for the second time in 2 days for midepigastric abdominal pain. CT of the abdomen yesterday was unremarkable however did reveal a ventral hernia. I discussed with patient this is likely the source of her pain. She was given morphine here and Zofran with some improvement of her pain. She did have some continued midepigastric abdominal pain however abdomen is soft without evidence of peritonitis. I doubt perforation or obstruction. I did draw some repeat labs to check CBC, CMP and lipase. CBC showed mild anemia with hemoglobin of 9. Patient has a history of anemia, currently not taking iron. Her vital signs are normal. She is hemodynamically stable does not require transfusion at this time. She did have transaminitis which is new from her work-up yesterday. This is likely related to her fatty liver disease as seen on her CT. Patient is otherwise stable and can be discharged home with close outpatient follow-up. She was given referral to [facility] and [facility] for treatment of her ventral hernia. She already has pain medications prescribed her from yesterday therefore no additional ones were prescribed. Strict return precautions were discussed. PRESCRIPTIONS: Ferrous sulfate SPECIALIST FOLLOW UP RECOMMENDED: General surgeon/GI specialist Departure Diagnosis: Primary Impression: Ventral hernia Additional Impression: Anemia Condition: Stable MARINOIGRIKIMONI DEJESUS PA-C May 18, 2019 18:37
[2019-05-18] MEDS ORDERED: SUCRALFATE 1 GM TAB PO ONE (19:00)
[2019-05-18] MEDS ORDERED: morphine 4 MG/ML VIAL IV STA (20:09)
[2019-05-18] MEDS ORDERED: morphine 4 MG/ML VIAL ONE (20:12)
[2019-05-18] MEDS ORDERED: FER325 PO (22:19)
[2019-05-18 22:34] VITALS: BP 124/78; PULSE 56; RESP 16
== END 2019-05-18 22:35 | disposition home or self-care (01) ==
LOC: FTE 16:19
DX: K43.9 Ventral hernia without obstruction or gangrene (principal); D64.9 Anemia, unspecified
CPT/HCPCS: 36415; 80053; 81025; 83690; 84484; 85025; 96374; 96375; 96376; J7030; Z7502; Z7610; J2270; J2405

== ENCOUNTER 2019-07-25 20:38 | Emergency (ER) | payer MEDICAID ==
[~2019-07-25] VITALS: Ht 167.6 cm; Wt 74.9 kg
[~2019-07-25 20:38] MED LIST changes: +CEPH-443 PO; +ONDA8TAB14 PO; +SULF1TAB31 PO
[2019-07-25 21:12] VITALS: Ht 167.6 cm; Wt 74.9 kg
[2019-07-25] MEDS ORDERED: LIDOCAINE 2% (MDV) 20 ML INJ INJ STA (22:03)
[2019-07-26 00:09] VITALS: BP 136/83; PULSE 73; RESP 16
== END 2019-07-26 00:10 | disposition home or self-care (01) ==
LOC: FTE 20:38
DX: N76.4 Abscess of vulva (principal)
CPT/HCPCS: 56405; Z7502; Z7610